=== PATIENT | male | born 1965 | race Caucasian/White ===

== ENCOUNTER 2022-06-11 08:03 | Day surgery (SDC) | payer OTHER ==
[2022-06-09 10:27] VITALS: BMI 32.3
[2022-06-11 09:15] VITALS: RESP 16; TEMP 98.1
[2022-06-11 12:41] VITALS: BP 119/70; PULSE 66
== END 2022-06-11 09:45 | disposition home or self-care (01) ==
LOC: FASU-ENDO 08:03
PROVIDERS: ATTEND Internal Medicine Gastroenterology
PROC: 0DJD8ZZ Inspection of Lower Intestinal Tract, Via Natural or Artificial Opening Endoscopic (ICD-10-PCS; principal; 2022-06-11 08:43)
DX: Z12.11 Encounter for screening for malignant neoplasm of colon (principal)